=== PATIENT | female | born 1980 | race Caucasian/White ===

== ENCOUNTER 2025-01-07 13:54 | Outpatient (RCR) | payer OTHER, SELFPAY | END 2025-02-11 11:23 | disposition home or self-care (01) | LOC: PT 13:54 | PROVIDERS: Visit Provider Emergency Medicine Emergency Medical Services | DX: S93.402D Sprain of unspecified ligament of left ankle, subsequent encounter (principal) | CPT/HCPCS: 97035; 97110; 97112; 97140; 97161 ==

== ENCOUNTER 2025-01-08 15:25 | Outpatient (OUT) | payer OTHER, SELFPAY ==
--- OUTSIDE RECORDS SUMMARY | 2025-01-08 15:28 | XMS_ITS | Clinical Summary ---
Author Organization [facility] Address [address] [place] [address] Care Team Providers Care Classroom Instructional Aide Name Role Phone Keena Boateng MD Unavailable [phone] Social History Tobacco UseTypesPacks/DayYears UsedDateSmoking Tobacco: Never Assessed CommentsUnknownSex and Gender InformationValueDate RecordedSex Assigned at Not on fileLegal DynOaquht87/15/2023 8:00 PM EDTGender IdentityNot on fileSexual OrientationNot on file Last Filed Vital Signs Vital SignReadingTime TakenCommentsBlood Mkntmthk332/9008 12:00 PM EDT Pulse--Temperature--Respiratory Rate--Oxygen Saturation--Inhaled Oxygen Concentration--Bosmfw54.3 kg (188 lb)10/17/2017 12:00 PM GZVKfbpeb621.9 cm (5' 5.3 )10/17/2017 12:00 PM EDTBody Mass Irxap232110/17/2017 12:00 PM EDT Plan of Treatment Not on file Care Teams Team MemberRelationshipSpecialtyStart DateEnd Date Keena Boateng MD [address] [place] [address] PCP - [facility]
--- OUTSIDE RECORDS SUMMARY | 2025-01-08 15:28 | XMS_ITS | Clinical Summary ---
Author Organization [facility] tem Address [id number] [address] [place] [address] Care Team Providers Care Oncology Consultant Name Role Phone Radha Aparicio APRN-INSURANCE FOLLOW UP REPRESENTATIVE Primary Care Provide r Allergies Active AllergyReactionsCriticalityNoted UjvnEvmebxyeWnweqfm50/14/2017Bee Venom Protein (Honey Bee)2778Pjvolnz52/19/9725Rdlmulmls16/05/2016Naproxen 12/30/2017 Medications MedicationSigDispense QuantityRefillsLast FilledStart DateEnd DateStatus acetaminophen (TYLENOL) 325 mg tablet Take 2 tablets (650 mg total) by mouth every 6 (six) hours as needed for pain. Active triamcinolone (KENALOG) 0.1 % cream Apply 1 Application topically in the morning and 1 Application before bedtime. 30 g 4Active FLUoxetine (PROzac) 10 mg capsule Take 1 capsule (10 mg total) by mouth in the morning. 90 capsule 5Active buPROPion XL (WELLBUTRIN XL) 300 mg 24 hr tablet Take 1 tablet (300 mg total) by mouth every morning. 90 tablet 5Active FLUoxetine (PROzac) 20 mg capsule Take 1 capsule by mouth in the morning 90 capsule 5Active Active Problems ProblemNoted DateDiagnosed DateObesity (BMI 35.0-39.9 without comorbidity) 4ASCUS with positive high risk HPV /19/2019Migraine without aura and without status migrainosus, not tsoepavrqwa92/13/2019Former smoker 10/29/2018 Overview (10/29/2018): Discussed cessation DepressionAnxiety Encounters DateTypeDepartmentCare MnimIjresxtcrei23/25/2025Refill [facility] [address] [place] [address] Radha Aparicio, MICHEL-MICHEAL from Last 3 Months Immunizations No known immunizations Family History Medical HistoryRelationNameCommentsEpilepsyBrotherBreast cancerCousinPaternalNo Known ProblemsFatherNo Known ProblemsMotherEpilepsySisterThyroid diseaseSister Colon cancerNeg HxOvarian cancerNeg HxUterine cancerNeg HxRelationNameStatus CommentsBrotherAliveCousinPaternalFatherAliveMotherAliveSisterAlive Social History Tobacco UseTypesPacks/DayYears UsedDateSmoking Tobacco: FormerCigarettes Smokeless Tobacco: Never Tobacco Cessation:Counseling Given: Not Answered Alcohol UseStandard Drinks/WeekCommentsNo0 (1 standard drink = 0.6 oz pure alcohol)Overall Financial Resource Strain (CARDIA)AnswerDate RecordedHow hard is it for you to pay for the very basics like food, housing, medical care, and heating?Not hard at all08/06/2024PHQ-2AnswerDate RecordedTotal Bthrq689 PRAPARE - TransportationAnswerDate RecordedIn the past 12 months, has lack of transportation kept you from medical appointments or from getting medications?No 08/06/2024In the past 12 months, has lack of transportation kept you from meetings, work, or from getting things needed for daily living?No08/06/2024 Housing InstabilityAnswerDate RecordedAre you worried or concerned that in the next two months you may not have stable housing that you own, rent or stay in as a part of a household?No08/06/2024hildcareAnswerDate RecordedChildcareUnknown 08/27/2018EmploymentAnswerDate NomfhcdsIktacollheXwscwgi96/11/2019Hunger ScreeningAnswerDate RecordedWithin the past 12 months we worried whether our food would run out before we got money to buy more.Never True08/06/2024Within the past 12 months the food we bought just didn't last and we didn't have money to get more.Never True08/06/2024Purpose - LifeAnswerDate RecordedPurpose and direction in truuEbipnsn47/27/2021CommentsNoSex and Gender Information ValueDate RecordedSex Assigned at BirthNot on fileLegal DrhRqjhhd31/04/2015 6:35 PM EDTGender IdentityNot on fileSexual OrientationNot on file Last Filed Vital Signs Vital SignReadingTime TakenCommentsBlood Keiyobmx818/7004 2:53 PM EDT Jfilz3455 2:53 PM UCQTscoxamtunu62.6 ??C (97.8 ??F)06/09/2020 4:28 PM EDTRespiratory Plel320907/10/2024 2:53 PM EDTOxygen Iczfitdazr14%07/10/2024 2:53 PM EDTInhaled Oxygen Concentration--Tkmemb732.1 kg (234 lb)07/10/2024 2:53 PM YFPFygrsu974.6 cm (5' 6 )07/10/2024 2:53 PM EDTBody Mass Index37.77007/10/2024 2:53 PM EDT Plan of Treatment Health MaintenanceDue DateLast DoneCommentsInfluenza Xfonevn8211/17/2024Tobacco Yhxlfjzcw43/dult BMI Follow Up Plan/dult BMI Cryfregmo80/24//Depression Pshsubvck58/Pap Smear/04/2023, 06/19/2023, 07/04/2021, Additional history exists DTaP,Tdap and Td Vaccines (2 - Td or Tdap) Medical Devices Not on file Procedures Procedure NamePriorityDate/TimeAssociated DiagnosisCommentsPAP SMEARRoutine 06/19/2023 4:25 AM EDT Screening for cervical cancer from Last 3 Months or Most Recently Relevant to Health Maintenance Results * Pap Smear (06/19/2023 4:25 AM EDT)Specimen (Source)Anatomical Location / LateralityCollection Method / VolumeCollection TimeReceived Time06/19/2023 4:25 AM EDT06/19/2023 4:44 AM EDT Narrative COPATH - 07/03/2023 12:27 PM EDT ? [facility] ? [address] [place] [address] ? [place] [address] ? Gynecologic Cytology Consultation ? Patient Name:NED GAGE:1980 (Age: 43)Gender:FTaken:4Reported:4Physician(s):Heidy Read APRN- CNPCopy To: Rec. #:[id number]: #[id number] Final Cytologic Interpretation ThinPrep Pap Test (Cervical): Satisfactory for evaluation. A transformation zone component is present. NEGATIVE FOR INTRAEPITHELIAL LESION OR MALIGNANCY. Shift in sabas suggestive of bacterial vaginosis. [facility] [place]/07/03/2023 [facility] [place] [address], License number: [id number]. Electronically Signed Out By ?BRIAN Irwin(ASCP) Date of Last Menstrual Period: ? 03/19/23 Other Clinical Conditions: Z12.4 Screening for malignant neoplasm of cervix Source of Specimen ??ThinPrep Pap Test (Cervical) ? Thin Prep Pap (CUSTOMER SERVICE OPERATOR) Fee Code(s): ?? G0145 Authorizing ProviderResult TypeResult Alfred Jacobsen PRODUCT SAFETY EXPERT-INSURANCE FOLLOW UP REPRESENTATIVE PATHOLOGY/CYTOLOGY ORDERABLESFinal ResultPerforming OrganizationAddress City/State/ZIP CodePhone Number COPATH from Last 3 Months or Most Recently Relevant to Health Maintenance Insurance * Guarantor: Ned Gage TypeRelation to PatientDate of BirthPhone Billing AddressPersonal/ZsnvktHxyh1980 [phone] [address] Care Teams Team MemberRelationshipSpecialtyStart DateEnd Date Radha Aparicio, MICHEL-INSURANCE FOLLOW UP REPRESENTATIVE [address] [place] [place] [address] [facility]
--- NOTE | 2025-01-08 15:32 | MR_ITS ---
[address] [address] Patient Name: NED GAGE MRN: [id number] date: 1980 Sex: F Assigned Patient Location: MRI Current Patient Location: MRI Accession/Order Number: [id number] Exam Date: 01/08/2025 15:50 Report Date: 01/08/2025 17:11 At the request of: BRINA GOULD DO Procedure: MR ankle LT wo con MR ankle LT wo con 01/08/2025 5:03 PM SIGNS AND SYMPTOMS: Left ankle pain PROTOCOL: Multiplanar multisequence MR images of the left ankle without IV contrast COMPARISON: None FINDINGS: Alignment: Normal. Fluid: Tibiotalar: There is a small joint effusion. Subtalar: No joint effusion. Medial: Medial malleolus: Intact. Tendons: Posterior tibial tendon: Intact. Flexor digitorum longus: Intact. Flexor hallucis longus: Intact. Ligaments: Deltoid ligament complex - superficial: Intact. Deltoid ligament complex - deep: Intact. Spring (plantar calcaneo-navicular) ligament: Intact. Lateral: Lateral malleolus: Edema is noted in the lateral malleolus. Retromalleolar groove: Normal. Tendons: Peroneus longus: Intact. Peroneus brevis: Intact. Peroneal retinaculum: Intact. Ligaments: Anterior inferior tibiofibular (syndesmosis): Intact. Posterior inferior tibiofibular (syndesmosis): Intact. Anterior talofibular ligament: Disrupted. There is accompanying soft tissue edema over the lateral malleolus. Calcaneofibular ligament: Disrupted Posterior talofibular ligament: Intact. Posterior: Posterior talus: Normal. Intermalleolar ligament: Intact. Achilles tendon: Intact. Plantar fascia: Intact. Anterior: Tendons: Anterior tibial tendon: Intact. Extensor hallucis longus: Intact. Extensor digitorum longus: Intact. Tibiotalar joint: Intact. Subtalar joint: Intact. Bones (other than subarticular marrow): Normal Muscles: Normal Tarsal tunnel: Normal Sinus tarsi: Normal. MR/MR ankle LT wo con IMPRESSION: There is edema at the tip of the lateral malleolus and involving the adjacent subcutaneous soft tissues with findings suspicious for a tear of the anterior talofibular ligament and calcaneofibular ligament. Impression dictated by: Wiliam Parish M.D. 01/08/2025 5:11 PM Dictation Location: [place] [address] Electronically authenticated by: [id number] Y Date: 01/08/2025 17:11
== END 2025-01-08 15:26 | disposition home or self-care (01) ==
LOC: MRI 15:25
PROVIDERS: Visit Provider Emergency Medicine Emergency Medical Services
DX: S93.402A Sprain of unspecified ligament of left ankle, initial encounter (principal)
CPT/HCPCS: 73721